=== PATIENT | male | born 2000 | race Caucasian/White ===

== ENCOUNTER 2019-11-24 22:08 | Emergency (ER) | payer BC, OTHER ==
[~2019-11-24] VITALS: Ht 182.9 cm; Wt 113.4 kg
[2019-11-24 22:13] VITALS: BP_SYST 104
[2019-11-24] MEDS ORDERED: NACL 0.9% 1,000 ML IV ONE (22:30)
[2019-11-24] MEDS ORDERED: LEVE750T4 PO (22:34)
[2019-11-24 22:39] LABS: BASOPHILS # (AUTO) 0.1 K/uL (0.0-0.2); BASOPHILS % (AUTO) 0.4 % (0.0-2.0); EOSINOPHILS # (AUTO) 0.3 K/uL (0.0-0.4); EOSINOPHILS % (AUTO) 2.1 % (0.0-4.0); HEMATOCRIT 45.1 % (36-54); HEMOGLOBIN 14.9 g/dL (14.0-18.0); LYMPHOCYTES # (AUTO) 5.1 K/uL (1.0-5.5); LYMPHOCYTES % (AUTO) 38.1 % (20.5-51.5); MEAN CORPUSCULAR HEMOGLOBIN 27 pg (27-31); MEAN CORPUSCULAR HGB CONC 33 % (32-36); MEAN CORPUSCULAR VOLUME 83 fL (79.0-98.0); MONOCYTES # (AUTO) 0.8 K/uL (0.0-1.0); MONOCYTES % (AUTO) 6.3 % (1.7-9.3); NEUTROPHILS # (AUTO) 7.1 K/uL (1.8-7.7); NEUTROPHILS % (AUTO) 53.1 % (40.0-70.0); PLATELET COUNT (AUTO) 255 K/uL (130-430); RED BLOOD CELL COUNT(AUTO) 5.47 MIL/uL (4.2-6.2); RED CELL DISTRIBUTION WIDTH 13.5 % (9.0-15.0); WHITE BLOOD COUNT (AUTO) 13.4 K/uL (4.8-10.8)
[2019-11-24] MEDS ORDERED: levETIRAcetam 1,000 MG in NS 100 ML IV ONE (22:45)
[2019-11-24] MEDS ORDERED: LEVE500T9 PO (22:46)
[2019-11-24 22:48] LABS: CALCIUM 8.5 mg/dL (8.4-11.0); CREATININE 1.06 mg/dL (0.55-1.30); POTASSIUM 3.2 mmol/L (3.5-5.1)
[2019-11-24 22:54] LABS: TOTAL BILIRUBIN 0.9 mg/dL (0.0-1.0)
[2019-11-24] MEDS ORDERED: ACETAMINOPHEN 500 MG TABLET PO ONE (23:00)
[2019-11-24] MEDS ORDERED: levETIRAcetam 1,000 MG IV BAG 100 ML IV ONE (23:00)
[2019-11-25 00:16] VITALS: BP_SYST 126
== END 2019-11-25 00:16 | disposition home or self-care (01) ==
LOC: SED 22:08
DX: S00.12XA Contusion of left eyelid and periocular area, initial encounter (principal); R56.9 Unspecified convulsions; W22.8XXA Striking against or struck by other objects, initial encounter; Y93.89 Activity, other specified; Y92.89 Other specified places as the place of occurrence of the external cause; Y99.8 Other external cause status
CPT/HCPCS: 36415; 70450; 70486; 72125; 80053; 82542; 85025; 96361; 96365; 96367; 99285; J1953; J7030